=== PATIENT | male | born 1955 | race African-American/Black ===

== ENCOUNTER 2021-02-19 10:59 | Inpatient (IN) ==
[2021-02-19] MEDS ORDERED: HEPARIN 1,000 UNIT/1 ML VIAL IV STA (11:51)
[2021-02-19] MEDS ORDERED: HEPARIN 5,000 UNIT/1 ML VIAL ONE ×2 (11:52→13:17)
[2021-02-19 12:02] LABS: Basophils # 0.1 10*3/uL (0.0-0.2); Basophils % 0.3 % (0.0-0.8); Hematocrit 35.2 VOL% (42.0-52.0); Hemoglobin 11.3 GM/DL (14.0-18.0); Immature Granulocytes % 2.8 %; Immature Granulocytes Absolute 0.49 #; Lymphocytes # 2.3 10*3/uL (1.4-4.0); Lymphocytes % 13.2 % (21.2-54.2); Mean Corpuscular HGB Conc 32.1 GM/DL (32-36); Mean Corpuscular Volume 89.3 FL (87-102); Mean Platelet Volume 10.3 FL (9.6-12.0); Monocytes % 6.2 % (1.7-12.7); NRBC # 0.15 10*3/uL; Neutrophils % 77.5 % (38.7-73.9); Platelet Count 272 T/CUMM (130-400); Red Blood Count 3.94 MC/CUMM (3.8-5.5); Red Cell Distribution Width 13.6 % (9.3-17.3); White Blood Count 17.6 T/CUMM (4-12)
[2021-02-19 12:25] LABS: Albumin 2.6 G/DL (3.4-5.0); Calcium 8.4 MG/DL (8.5-10.1); Osmolality,Calculated 284.3 MOS/KG (273-304); Potassium 3.4 MMOL/L (3.5-5.1); Total Protein 7.8 G/DL (6.4-8.2)
[2021-02-19] MEDS ORDERED: VANCOMYCIN INJ 1,000 MG in SODIUM CHLORIDE 0.9% 250 ML IV STA ×2 (13:09→13:11)
[2021-02-19] MEDS ORDERED: propofoL 200 MG/20 ML VIAL IV ONE (13:16)
[2021-02-19] MEDS ORDERED: SEVOFLURANE 1 UNIT/15 MINUTE INH ONE ×6 (13:16→15:19)
[2021-02-19] MEDS ORDERED: LIDOCAINE 2% 5 ML VIAL ONE (13:16)
[2021-02-19] MEDS ORDERED: MIDAZOLAM 2 MG/2 ML VIAL ONE (13:16)
[2021-02-19] MEDS ORDERED: fentaNYL 100 MCG/2 ML VIAL ONE ×2 (13:16→14:42)
[2021-02-19] MEDS ORDERED: LACTATED RINGERS 1,000 ML IV SCH (14:00)
[2021-02-19] MEDS ORDERED: HEPARIN 10,000 UNIT/10 ML VIAL ONE (14:13)
[2021-02-19] MEDS ORDERED: TISSUE ADHESIVE 1 EACH APPLICATOR TOP ONE (15:03)
[2021-02-19] MEDS ORDERED: KETOROLAC 30 MG/1 ML VIAL ONE (15:18)
[2021-02-19] MEDS ORDERED: ACETAMINOPHEN INJ 1,000 MG/100 ML VIAL IV ONE (15:18)
[2021-02-19] MEDS ORDERED: PHENYLEPHRINE 1 MG/10 ML SYRINGE IV ONE (15:19)
[2021-02-19] MEDS: LACTATED RINGERS 1,000 ML IV SCH ×2 (16:30→22:38)
[2021-02-19] MEDS ORDERED: ENOXAPARIN 40 MG/0.4 ML SYRINGE SUBCUT SCH (21:00)
[2021-02-20 06:06] LABS: Hemoglobin 9.7 GM/DL (14.0-18.0)
[2021-02-20] MEDS: LACTATED RINGERS 1,000 ML IV SCH (06:18)
[2021-02-20 06:33] LABS: Calcium 7.7 MG/DL (8.5-10.1); Osmolality,Calculated 275.8 MOS/KG (273-304); Potassium 3.9 MMOL/L (3.5-5.1)
[2021-02-20] MEDS: ASPIRIN CHEW 81 MG TABLET PO SCH (09:08)
[2021-02-20] MEDS: HYDROmorphone 2 MG/1 ML VIAL IV PRN ×2 (09:13→23:07)
[2021-02-20] MEDS ORDERED: VANCOMYCIN INJ 1,000 MG in SODIUM CHLORIDE 0.9% 250 ML IV ONE (10:23)
[2021-02-20] MEDS ORDERED: FAMOTIDINE 20 MG/2 ML VIAL IV ONE (10:32)
[2021-02-20] MEDS ORDERED: HEPARIN 5,000 UNIT/1 ML VIAL ONE (10:55)
[2021-02-20] MEDS ORDERED: TISSUE ADHESIVE 1 EACH APPLICATOR TOP ONE ×2 (10:55→12:26)
[2021-02-20] MEDS ORDERED: fentaNYL 250 MCG/5 ML VIAL ONE (11:12)
[2021-02-20] MEDS ORDERED: MIDAZOLAM 2 MG/2 ML VIAL ONE (11:12)
[2021-02-20] MEDS ORDERED: SODIUM BICARBONATE 50 MEQ/50 ML VIAL IV ONE (12:04)
[2021-02-20] MEDS ORDERED: PHENYLEPHRINE 10 MG/1 ML VIAL IV ONE (12:04)
[2021-02-20] MEDS ORDERED: SUCCINYLCHOLINE 200 MG/10 ML VIAL ONE (12:22)
[2021-02-20] MEDS ORDERED: propofoL 200 MG/20 ML VIAL IV ONE (12:22)
[2021-02-20] MEDS ORDERED: PHENYLEPHRINE 1 MG/10 ML SYRINGE IV ONE (12:22)
[2021-02-20] MEDS ORDERED: ROCURONIUM 50 MG/5 ML VIAL IV ONE (12:22)
[2021-02-20] MEDS ORDERED: LIDOCAINE 2% 5 ML VIAL ONE (12:22)
[2021-02-20] MEDS ORDERED: HEPARIN 10,000 UNIT/10 ML VIAL ONE (12:25)
[2021-02-20] MEDS ORDERED: [UNRECOGNIZED DRUG - OTHER] IV SCH (13:00)
[2021-02-20] MEDS ORDERED: DEXTRAN IV SCH (13:00)
[2021-02-20] MEDS: SODIUM BICARB INJ 50 MEQ in SODIUM CHLORIDE 0.45% 1,000 ML IV SCH (14:50)
[2021-02-20] MEDS: HEPARIN DRIP 25,000 UNITS/500 ML PREMIX IV SCH (15:30)
[2021-02-21] MEDS: SODIUM BICARB INJ 50 MEQ in SODIUM CHLORIDE 0.45% 1,000 ML IV SCH ×3 (00:50→23:09)
[2021-02-21 07:47] LABS: Basophils % 0.1 % (0.0-0.8); Eosinophils % 0.1 % (0.00-10.9); Hematocrit 19.7 VOL% (42.0-52.0); Immature Granulocytes % 2.1 %; Immature Granulocytes Absolute 0.33 #; Lymphocytes # 2.3 10*3/uL (1.4-4.0); Lymphocytes % 14.7 % (21.2-54.2); Mean Corpuscular HGB Conc 31.5 GM/DL (32-36); Mean Corpuscular Volume 91.6 FL (87-102); Mean Platelet Volume 10.5 FL (9.6-12.0); Monocytes % 6.2 % (1.7-12.7); NRBC # 0.06 10*3/uL; Neutrophils % 76.8 % (38.7-73.9); Platelet Count 244 T/CUMM (130-400); Red Blood Count 2.15 MC/CUMM (3.8-5.5); Red Cell Distribution Width 13.9 % (9.3-17.3); White Blood Count 15.7 T/CUMM (4-12)
[2021-02-21 07:49] LABS: Hemoglobin 6.2 GM/DL (14.0-18.0)
[2021-02-21] MEDS ORDERED: SODIUM CHLORIDE 0.9% 1,000 ML IV PRN (07:54)
[2021-02-21 07:56] LABS: Albumin 1.7 G/DL (3.4-5.0); Bilirubin,Total 0.6 MG/DL (0.20-1.00); Calcium 7.1 MG/DL (8.5-10.1); Osmolality,Calculated 267.1 MOS/KG (273-304); Potassium 3.5 MMOL/L (3.5-5.1)
[2021-02-21] MEDS: ASPIRIN CHEW 81 MG TABLET PO SCH (09:53)
[2021-02-21] MEDS ORDERED: ACETAMINOPHEN 325 MG TABLET PO PRN (14:47)
[2021-02-21] MEDS: HEPARIN DRIP 25,000 UNITS/500 ML PREMIX IV SCH (14:58)
[2021-02-21 18:44] LABS: Hematocrit 24.2 VOL% (42.0-52.0); Hemoglobin 7.5 GM/DL (14.0-18.0)
[2021-02-21 20:21] LABS: Basophils % 0.1 % (0.0-0.8); Eosinophils % 0.1 % (0.00-10.9); Hematocrit 25.1 VOL% (42.0-52.0); Hemoglobin 7.8 GM/DL (14.0-18.0); Immature Granulocytes % 2.3 %; Immature Granulocytes Absolute 0.35 #; Lymphocytes # 2.1 10*3/uL (1.4-4.0); Lymphocytes % 13.9 % (21.2-54.2); Mean Corpuscular HGB Conc 31.1 GM/DL (32-36); Mean Corpuscular Volume 91.6 FL (87-102); Mean Platelet Volume 9.4 FL (9.6-12.0); Monocytes % 5.6 % (1.7-12.7); NRBC # 0.07 10*3/uL; Platelet Count 245 T/CUMM (130-400); Red Blood Count 2.74 MC/CUMM (3.8-5.5); White Blood Count 15.3 T/CUMM (4-12)
[2021-02-22 08:03] LABS: Hematocrit 32.6 VOL% (42.0-52.0); Hemoglobin 10.5 GM/DL (14.0-18.0)
[2021-02-22] MEDS: ASPIRIN CHEW 81 MG TABLET PO SCH (09:01)
[2021-02-23] MEDS: SODIUM CHLORIDE 0.9% 1,000 ML IV SCH ×2 (00:09→17:26)
[2021-02-23] MEDS: ASPIRIN CHEW 81 MG TABLET PO SCH (09:00)
[2021-02-23] MEDS ORDERED: VANCOMYCIN INJ 1,000 MG in SODIUM CHLORIDE 0.9% 250 ML IV ONE (11:54)
[2021-02-23] MEDS ORDERED: BUPIVACAINE SPINAL 0.75% 2 ML AMP SPINAL ONE (12:24)
[2021-02-23] MEDS ORDERED: propofoL 200 MG/20 ML VIAL IV ONE (12:56)
[2021-02-23] MEDS ORDERED: fentaNYL 100 MCG/2 ML VIAL ONE ×3 (12:56→13:42)
[2021-02-23] MEDS ORDERED: LIDOCAINE 2% 5 ML VIAL ONE (12:56)
[2021-02-23] MEDS ORDERED: MIDAZOLAM 2 MG/2 ML VIAL ONE (12:57)
[2021-02-23] MEDS ORDERED: LACTATED RINGERS 1,000 ML IV SCH ×2 (13:00→15:00)
[2021-02-23] MEDS ORDERED: fentaNYL 2 MCG/ROPIV 0.2% EPID 100 ML EPIDURAL ONE (13:21)
[2021-02-23] MEDS ORDERED: DEXAMETHASONE 4 MG/1 ML VIAL ONE (13:29)
[2021-02-23] MEDS ORDERED: SEVOFLURANE 1 UNIT/15 MINUTE INH ONE ×4 (13:29→14:19)
[2021-02-23] MEDS ORDERED: ONDANSETRON 4 MG/2 ML VIAL ONE (13:29)
[2021-02-23] MEDS ORDERED: PHENYLEPHRINE 10 MG/1 ML VIAL IV ONE (13:31)
[2021-02-23 14:10] LABS: Bilirubin,Urine Negative (Negative); Blood, Urine Moderate mg/dL (Negative); Glucose,Urine (UA) Negative (Negative); Hyaline Casts,Urine 1 /LPF (0-3); Ketones,Urine 20 mg/dL (Negative); Mucus,Urine Occasional /LPF (Occasional); Nitrite,Urine Negative (Negative); Protein,Urine Negative; RBC,Urine 1 /HPF (0-4); Squamous Epithelial Cell,Urine Occasional /HPF (0-10); Urine Appearance CLEAR (Clear); Urine Color Yellow (Yellow); Urine Specific Gravity 1.011 (1.001-1.035)
[2021-02-23] MEDS ORDERED: ONDANSETRON 4 MG/2 ML VIAL IV PRN (14:35)
[2021-02-23] MEDS ORDERED: KETOROLAC 10 MG TABLET PO PRN (14:35)
[2021-02-23] MEDS ORDERED: KETOROLAC 60 MG/2 ML VIAL IM ONE (14:35)
[2021-02-23] MEDS ORDERED: diphenhydrAMINE CAP 25 MG CAPSULE PO PRN (14:35)
[2021-02-23] MEDS ORDERED: diphenhydrAMINE 50 MG/1 ML VIAL IV PRN (14:35)
[2021-02-23] MEDS ORDERED: hydrALAZINE 20 MG/1 ML VIAL ONE (14:58)
[2021-02-23] MEDS ORDERED: hydrALAZINE 20 MG/1 ML VIAL IV ONE (15:02)
[2021-02-23] MEDS: SODIUM BICARB INJ 50 MEQ in SODIUM CHLORIDE 0.45% 1,000 ML IV SCH (17:24)
[2021-02-23] MEDS ORDERED: KETOROLAC 30 MG/1 ML VIAL IM PRN (20:35)
[2021-02-24] MEDS ORDERED: hydrALAZINE 20 MG/1 ML VIAL IV PRN (02:02)
[2021-02-24] MEDS: fentaNYL 2 MCG/ROPIV 0.2% EPID 100 ML EPIDURAL SCH ×2 (05:02→22:04)
[2021-02-24 06:42] LABS: Basophils % 0.1 % (0.0-0.8); Hematocrit 33.1 VOL% (42.0-52.0); Hemoglobin 10.7 GM/DL (14.0-18.0); Immature Granulocytes % 0.8 %; Immature Granulocytes Absolute 0.15 #; Lymphocytes # 1.3 10*3/uL (1.4-4.0); Lymphocytes % 6.7 % (21.2-54.2); Mean Corpuscular HGB Conc 32.3 GM/DL (32-36); Mean Corpuscular Volume 88.5 FL (87-102); Mean Platelet Volume 9.6 FL (9.6-12.0); Monocytes % 5.6 % (1.7-12.7); NRBC # 0.05 10*3/uL; Neutrophils % 86.8 % (38.7-73.9); Platelet Count 334 T/CUMM (130-400); Red Blood Count 3.74 MC/CUMM (3.8-5.5); Red Cell Distribution Width 14.7 % (9.3-17.3); White Blood Count 19.1 T/CUMM (4-12)
[2021-02-24] MEDS: SODIUM BICARB INJ 50 MEQ in SODIUM CHLORIDE 0.45% 1,000 ML IV SCH ×2 (07:02→07:03)
[2021-02-24] MEDS: SODIUM CHLORIDE 0.9% 1,000 ML IV SCH ×2 (07:03→15:00)
[2021-02-24 07:21] LABS: Albumin 1.7 G/DL (3.4-5.0); Bilirubin,Total 0.6 MG/DL (0.20-1.00); Osmolality,Calculated 278.3 MOS/KG (273-304); Potassium 3.2 MMOL/L (3.5-5.1); Total Protein 6.1 G/DL (6.4-8.2)
[2021-02-24] MEDS: ASPIRIN CHEW 81 MG TABLET PO SCH (08:02)
[2021-02-24] MEDS ORDERED: hydroCHLOROthiazide 12.5 MG CAPSULE PO SCH (11:30)
[2021-02-24] MEDS ORDERED: hydrALAZINE 25 MG TABLET PO SCH (15:00)
[2021-02-24 19:21] LABS: PT Patient Result 11.4 SECS (10.5-12.0)
[2021-02-24] MEDS: METOPROLOL TARTRATE 25 MG TABLET PO SCH (20:15)
[2021-02-24] MEDS ORDERED: ENOXAPARIN 100 MG/ML SYRINGE SUBCUT SCH (23:00)
[2021-02-24] MEDS ORDERED: HEPARIN DRIP 25,000 UNITS/500 ML PREMIX IV SCH (23:30)
[2021-02-25] MEDS: SODIUM CHLORIDE 0.9% 1,000 ML IV SCH ×4 (00:05→23:16)
[2021-02-25 05:53] LABS: INR 1.1; PT Patient Result 11.9 SECS (10.5-12.0); Partial Thromboplastin Time 43.2 SECS (23.9-33.8)
[2021-02-25 07:43] LABS: Total Protein (Chem) 6.1 G/DL (6.4-8.3)
[2021-02-25] MEDS: POTASSIUM CHLORIDE 20 MEQ TABLET PO SCH (08:45)
[2021-02-25] MEDS: ASPIRIN CHEW 81 MG TABLET PO SCH (08:45)
[2021-02-25] MEDS: METOPROLOL TARTRATE 25 MG TABLET PO SCH ×2 (08:45→21:06)
[2021-02-25] MEDS ORDERED: LISINOPRIL/HCTZ 10-12.5 MG TABLET PO SCH (09:00)
[2021-02-25 09:31] LABS: Albumin (SPE) 2.5 G/DL (3.2-5.3); Albumin (SPE) Rel % 40.4 %; Alpha 1 (SPE) 0.5 G/DL (0.1-0.4); Alpha 1 (SPE) Rel % 8.1 %; Alpha 2 (SPE) Rel % 16.6 %; Beta (SPE) Rel % 18.5 %; Gamma (SPE) Rel % 16.4 %
[2021-02-25 12:01] LABS: INR 1.1; PT Patient Result 11.8 SECS (10.5-12.0); Partial Thromboplastin Time 44.5 SECS (23.9-33.8)
[2021-02-25 13:42] LABS: Beta (SPE) 1.1 G/DL (0.5-1.1)
[2021-02-25] MEDS: fentaNYL 2 MCG/ROPIV 0.2% EPID 100 ML EPIDURAL SCH ×2 (14:06→14:21)
[2021-02-25 17:56] LABS: PT Patient Result 10.9 SECS (10.5-12.0); Partial Thromboplastin Time 29.1 SECS (23.9-33.8)
[2021-02-25] MEDS ORDERED: MORPHINE 2 MG/1 ML SYRINGE IV PRN (21:44)
[2021-02-25] MEDS ORDERED: ENOXAPARIN 40 MG/0.4 ML SYRINGE SUBCUT SCH (23:00)
[2021-02-26 01:41] LABS: PT Patient Result 11.3 SECS (10.5-12.0); Partial Thromboplastin Time 32.3 SECS (23.9-33.8)
[2021-02-26 08:22] LABS: Basophils % 0.2 % (0.0-0.8); Eosinophils % 0.1 % (0.00-10.9); Hematocrit 32.6 VOL% (42.0-52.0); Hemoglobin 10.3 GM/DL (14.0-18.0); Immature Granulocytes % 0.8 %; Lymphocytes # 1.4 10*3/uL (1.4-4.0); Lymphocytes % 10.6 % (21.2-54.2); Mean Corpuscular HGB Conc 31.6 GM/DL (32-36); Mean Corpuscular Volume 88.6 FL (87-102); Mean Platelet Volume 9.6 FL (9.6-12.0); Monocytes % 5.1 % (1.7-12.7); Neutrophils % 83.2 % (38.7-73.9); Platelet Count 429 T/CUMM (130-400); Red Blood Count 3.68 MC/CUMM (3.8-5.5); Red Cell Distribution Width 14.5 % (9.3-17.3); White Blood Count 12.9 T/CUMM (4-12)
[2021-02-26] MEDS: METOPROLOL TARTRATE 25 MG TABLET PO SCH ×2 (08:22→20:34)
[2021-02-26] MEDS: POTASSIUM CHLORIDE 20 MEQ TABLET PO SCH (08:23)
[2021-02-26] MEDS: SODIUM CHLORIDE 0.9% 1,000 ML IV SCH ×2 (08:23→17:56)
[2021-02-26] MEDS: ASPIRIN CHEW 81 MG TABLET PO SCH (08:23)
[2021-02-26] MEDS ORDERED: LISINOPRIL/HCTZ 20-12.5 MG TABLET PO SCH (09:00)
[2021-02-26] MEDS: APIXABAN 5 MG TABLET PO SCH ×2 (10:14→20:34)
[2021-02-26] MEDS ORDERED: APIXABAN 5 MG TABLET PO SCH (21:00)
[2021-02-27 05:12] LABS: Basophils % 0.2 % (0.0-0.8); Eosinophils % 0.1 % (0.00-10.9); Hematocrit 30.9 VOL% (42.0-52.0); Immature Granulocytes % 0.7 %; Immature Granulocytes Absolute 0.09 #; Lymphocytes # 1.4 10*3/uL (1.4-4.0); Lymphocytes % 11.5 % (21.2-54.2); Mean Corpuscular HGB Conc 32.4 GM/DL (32-36); Mean Corpuscular Volume 88.5 FL (87-102); Mean Platelet Volume 9.6 FL (9.6-12.0); Monocytes % 5.7 % (1.7-12.7); Neutrophils % 81.8 % (38.7-73.9); Platelet Count 478 T/CUMM (130-400); Red Blood Count 3.49 MC/CUMM (3.8-5.5); Red Cell Distribution Width 14.5 % (9.3-17.3); White Blood Count 12.2 T/CUMM (4-12)
[2021-02-27] MEDS: SODIUM CHLORIDE 0.9% 1,000 ML IV SCH ×2 (06:49→19:28)
[2021-02-27] MEDS ORDERED: LISINOPRIL/HCTZ 20-25 MG TABLET PO SCH (09:00)
[2021-02-27 09:20] LABS: Calcium 8.2 MG/DL (8.5-10.1); Osmolality,Calculated 279.3 MOS/KG (273-304); Potassium 3.1 MMOL/L (3.5-5.1)
[2021-02-27] MEDS: ASPIRIN CHEW 81 MG TABLET PO SCH (10:29)
[2021-02-27] MEDS: METOPROLOL TARTRATE 25 MG TABLET PO SCH (10:29)
[2021-02-27] MEDS: POTASSIUM CHLORIDE 20 MEQ TABLET PO SCH (10:29)
[2021-02-27] MEDS: APIXABAN 5 MG TABLET PO SCH (10:29)
[2021-02-27 11:53] LABS: Immunoglobulin A 280 MG/DL (70-400); Immunoglobulin G 1140 MG/DL (700-1600); Immunoglobulin M 73 MG/DL (40-230)
[2021-02-27 12:26] LABS: Immunoglobulin A 280 MG/DL (70-400); Immunoglobulin G 1140 MG/DL (700-1600); Immunoglobulin M 73 MG/DL (40-230)
[2021-02-27 13:00] LABS: DRVVT Screen Ratio 1.44 ratio (<1.20); INR 1.2 (0.9-1.1)
[2021-02-27 13:12] LABS: Antinuclear Ab, S 0.4 U
[2021-02-27 18:08] VITALS: BP 154/66
[2021-02-28 15:26] LABS: Phospholipid Ab IgM, S 34.9 MPL
[2021-03-03 09:37] LABS: Immuno Free Light Chain Kappa 5.23 MG/DL (0.33-1.94); Immuno Free Light Chain Lambda 3.16 MG/DL (0.57-2.63); Immuno Free Light Chain Ratio 1.66 MG/DL (0.26-1.65)
== END 2021-02-27 21:25 | DRG 239 ==
LOC: EDUNIT# → EDBD → N.ED 10:59 → N.3E 13:42
PROVIDERS: ADMIT Surgery; ATTEND Surgery
PROC: FASCLOA (2021-02-20 11:11)